=== PATIENT | female | born 1990 | race Caucasian/White ===

== ENCOUNTER 2025-01-20 13:45 | Outpatient (CLI) | payer OTHER, SELFPAY ==
--- OUTSIDE RECORDS SUMMARY | 2025-01-20 13:51 | XMS_ITS | Clinical Summary ---
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 Active norethindrone 1 mg-ethinyl estradioL 20 mcg (21)-iron 75 mg (7) tablet Take 1 Tablet by mouth daily. Active methylphenidate ER 36 mg tablet,extended release 24 hr Take 36 mg by mouth daily in the morning. Active Cetirizine (ZyrTEC) 10 mg Capsule Take 10 mg by mouth daily. Active diphenhydrAMINE 25 mg tablet Take 50 mg by mouth every 8 hours as needed for Allergies. Active fluticasone propionate (FLONASE) 50 mcg/spray [place], Suspension nasal inhaler Administer 2 Sprays in each nostril daily. 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 Max Daily Amount: 6 Tablets 20 Tablet 3 5:48 PM CDT 01/03/20 23 Active Social History Tobacco Use Types Packs/Day Years Used Date Smoking Tobacco: Never Smokeless Tobacco: Never Tobacco Cessation:Counseling Given: Not Answered Alcohol Use Standard Drinks/Week Comments Yes 0 (1 standard drink = 0.6 oz pur e alcohol) occ Feeling Safe Answer Date Recorded Are you in a relationship wi th someone who hurts you emotionally and/or physically? No 01/02/2023 Food Insecurity Answer Date Recorded Social/Environmental Concerns No concerns Transportation Needs Answer Date Record ed Social/Environmental Concerns No concerns Housing Stability Answer Date Recorded Social/Environmental Concerns No concerns Utility Needs Answer Date Recorded Social/Environmental Concerns No concerns Comments Unknown Sex and Gender Information Value Date Recorded Sex Assigned at Not on file Legal Sex Female 4:45 PM [employer] Gender Identity Not on file Sexual Orientation Not on file Last Filed Vital Signs Vital Sign Reading Time Taken Comments Blood Pressure 123/77 01/02/2023 5:21 PM CDT Pulse 83 01/02/2023 5:21 PM CDT Temperature 36.4 C (97.6 F) 01/02/2023 5:21 PM CDT Respiratory Rate 18 01/02/2023 5:21 PM CDT Oxygen Saturation 97% 01/02/2023 5:21 PM CDT Inhaled Oxygen Concentration - - Weight 98.1 kg (216 lb 3.2 oz) 01/02/2023 12:38 PM CDT Height 167.6 cm (5' 6 ) 01/02/2023 12:38 PM CDT Body Mass Index 34.9 01/02/2023 12:38 PM CDT Plan of Treatment Health Maintenance Due Date Last Done Comments DTAP/TDAP/TD VACCINES (1 - Tdap) 12/28/2011 HEPATITIS B VACCINES (1 of 3 - 19+ 3-dose series) 12/28/2011 HPV/Cotest (21-29) 2013 CERVICAL CANCER SCREENING 2022 HPV/Cotest (30-65) 2022 PAP SMEAR 2022 INFLUENZA VACCINE (#1) 2024 HPV VACCINES Aged Out No longer eligi ble based on patient's age to complete this topic Insurance [facility] [id number] [employer] Advance Directives For more information, please contact: [phone] * Full Code (Latest Code Status on File) Date Activated Date Inactivated Comments 01/02/2023 12:30 PM 01/02/2023 7:50 PM
--- NOTE | 2025-01-20 14:40 | NEURO_ITS ---
Impression: # Complains of pain in hands. Non-diabetic. ? 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 ? # No Carpal Tunnel Syndrome. ? # Normal needle/EMG exam. Nerve Conduction Studies? Anti Sensory Summary Table ?Stim Site NR Peak (ms) P-T Amp (?V) Site1 Site2 Delta-P (ms) Dist (cm) Leonel (m/s) Left Median Anti Sensory (2-3nd Digit) Wrist ? 3.4 87.4 Wrist 2-3nd Digit 3.4 14.0 41 Wrist ? 3.5 74.0 Wrist 2-3nd Digit 3.4 14.0 41 Right Median Anti Sensory (2-3nd Digit) Wrist ? 3.3 61.9 Wrist 2-3nd Digit 3.3 14.0 42 Wrist ? 3.3 35.5 Wrist 2-3nd Digit 3.3 14.0 42 Left Radial Anti Sensory (Base 1st Digit) Wrist ? 1.8 29.2 Wrist Base 1st Digit 1.8 0.0 Right Radial Anti Sensory (Base 1st Digit) Wrist ? 2.3 14.5 Wrist Base 1st Digit 2.3 0.0 Left Ulnar Anti Sensory (5th Digit) Wrist ? 2.6 81.8 Wrist 5th Digit 2.6 14.0 54 Right Ulnar Anti Sensory (5th Digit) Wrist ? 2.2 38.8 Wrist 5th Digit 2.2 14.0 64 Motor Summary Table ?Stim Site NR Onset (ms) O-P Amp (mV) Site1 Site2 Delta-0 (ms) Dist (cm) Leonel (m/s) Left Median Motor (Abd Poll Brev) Wrist ? 3.0 8.5 Elbow Wrist 5.0 32.0 64 Elbow ? 8.0 8.3 Right Median Motor (Abd Poll Brev) Wrist ? 3.0 10.0 Elbow Wrist 5.1 28.0 55 Elbow ? 8.1 7.5 Left Ulnar Motor (Abd Dig Minimi) Wrist ? 2.7 7.1 A Elbow Wrist 5.4 31.0 57 A Elbow ? 8.1 6.0 B Elbow Wrist 3.6 21.0 58 B Elbow ? 6.3 6.5 Right Ulnar Motor (Abd Dig Minimi) Wrist ? 2.0 7.2 A Elbow Wrist 5.0 32.0 64 A Elbow ? 7.0 5.8 B Elbow Wrist 3.3 21.0 64 B Elbow ? 5.3 5.8 F Wave Studies ?NR F-Lat (ms) L-R F-Lat (ms) Left Median (Mrkrs) (Abd Poll Brev) ? 26.72 0.94 Right Median (Mrkrs) (Abd Poll Brev) ? 25.78 0.94 Left Ulnar (Mrkrs) (Abd Dig Min) ? 27.89 1.16 Right Ulnar (Mrkrs) (Abd Dig Min) ? 26.73 1.16 EMG ?Side Muscle Nerve Root Ins Act Fibs Amp Dur Recrt Comment Right 1stDorInt Ulnar C8-T1 Nml Nml Nml Nml Nml Right Ext Indicis Radial (Post Int) C7-8 Nml Nml Nml Nml Nml Right Ext Digitorum Radial (Post Int) C7-8 Nml Nml Nml Nml Nml Right BrachioRad Radial C5-6 Nml Nml Nml Nml Nml Right PronatorTeres Median C6-7 Nml Nml Nml Nml Nml Right Abd Poll Brev Median C8-T1 Nml Nml Nml Nml Nml Right ABD Dig Min Ulnar C8-T1 Nml Nml Nml Nml Nml Right FlexPolLong Median (Ant Int) C7-8 Nml Nml Nml Nml Nml Right Abd Poll Long Radial (Post Int) C7-8 Nml Nml Nml Nml Nml Left 1stDorInt Ulnar C8-T1 Nml Nml Nml Nml Nml Left Ext Indicis Radial (Post Int) C7-8 Nml Nml Nml Nml Nml Left Ext Digitorum Radial (Post Int) C7-8 Nml Nml Nml Nml Nml Left BrachioRad Radial C5-6 Nml Nml Nml Nml Nml Left PronatorTeres Median C6-7 Nml Nml Nml Nml Nml Left Abd Poll Brev Median C8-T1 Nml Nml Nml Nml Nml Left ABD Dig Min Ulnar C8-T1 Nml Nml Nml Nml Nml Left FlexPolLong Median (Ant Int) C7-8 Nml Nml Nml Nml Nml Left Abd Poll Long Radial (Post Int) C7-8 Nml Nml Nml Nml Nml MTDD
== END 2025-01-20 13:46 | disposition home or self-care (01) ==
PROVIDERS: PCP Family Medicine; Visit Provider Physician Assistant
DX: R29.898 Other symptoms and signs involving the musculoskeletal system (principal); G56.22 Lesion of ulnar nerve, left upper limb
CPT/HCPCS: 95886; 95911

== ENCOUNTER 2025-07-02 09:49 | Outpatient (CLI) | payer OTHER, SELFPAY ==
--- NOTE | ~2025-07-02 | CT_ITS ---
EXAMINATION: CT sinus wo con DATE: 07/02/2025 10:13 INDICATION: Chronic sinusitis TECHNIQUE: Computed tomography (CT) of the paranasal sinuses was performed without intravenous contrast. The dose-length product was 269.39 mGy-cm. Automated exposure control and iterative reconstruction technique were employed. COMPARISON: None FINDINGS: Paranasal sinuses are pneumatized. No significant mucosal thickening. No abnormal fluid or air-fluid level. Leftward nasal septal deviation. Ostiomeatal units are patent. Mastoids are pneumatized. IMPRESSION: 1. No significant sinus disease. Reviewed, dictated and finalized at location O.
== END 2025-07-02 09:50 | disposition home or self-care (01) ==
LOC: MICIMG 09:49
PROVIDERS: PCP Family Medicine; Visit Provider Otolaryngology
DX: J32.9 Chronic sinusitis, unspecified (principal)
CPT/HCPCS: 70486

== ENCOUNTER 2025-07-16 08:56 | Outpatient (CLI) | payer OTHER, SELFPAY ==
--- NOTE | ~2025-07-16 | CT_ITS ---
EXAMINATION: CT brain wo con COMPARISON: None HISTORY: Other hallucinations, [place] smells TECHNIQUE: Axial images were obtained through the brain without IV contrast. CT scan performed using dose optimization techniques including the following automated exposure control; adjustment of mA and/or kV; use of iterative reconstruction technique. Automatic exposure control was used to reduce radiation dose. Permanent radiation dose record is archived to PACS. FINDINGS: No acute infarct or parenchymal hemorrhage. No abnormal mass or mass effect. No midline shift. No extra-axial fluid collections. No hydrocephalus. . Mastoid air cells unremarkable. Sinuses and orbits unremarkable. No acute fracture. No significant facial or scalp soft tissue swelling evident. No radiopaque foreign body is seen. Impression: 1.No acute intracranial abnormality. Reviewed, dictated and finalized at location P. Impression: 1.No acute intracranial abnormality.
== END 2025-07-16 08:57 | disposition home or self-care (01) ==
LOC: MICIMG 08:57
PROVIDERS: PCP Family Medicine; Visit Provider Physician Assistant
DX: R44.2 Other hallucinations (principal); R51.9 Headache, unspecified
CPT/HCPCS: 70450